=== PATIENT | male | born 1975 | race Caucasian/White ===

== ENCOUNTER 2022-11-27 07:36 | Emergency (ER) | payer MEDICAID ==
[~2022-11-27] VITALS: Ht 170.2 cm; Wt 82.0 kg
[2022-11-27] MEDS ORDERED: OLANZAPINE 5MG TABLET ODT PO ONE ×2 (07:45→11:30)
[2022-11-27] MEDS ORDERED: MIDAZOLAM HCL 2 MG/2 ML VIAL IM ONE (07:45)
[2022-11-27 08:46] LABS: BASOPHILS % 0.5 % (0.0-2.0); EOSINOPHILS % 1.8 % (0.0-5.0); HEMATOCRIT. 42.1 % (42.0-52.0); HEMOGLOBIN. 14.5 g/dL (14.0-18.0); LYMPHOCYTES % 21.7 % (20.0-50.0); MEAN CORPUSCULAR HEMOGLOBIN 28.8 pg (28.0-32.0); MEAN CORPUSCULAR VOLUME 83.8 fL (80.0-94.0); MEAN PLATELET VOLUME 7.3 fl (7.4-10.4); MONOCYTES % 6.1 % (2.0-8.0); NEUTROPHILS % 69.9 % (40.0-76.0); PLATELET 330 x1000/uL (130-400); RED BLOOD CELL COUNT 5.03 mill/uL (4.7-6.1); RED CELL DISTRIBUTION WIDTH 13.9 % (11.6-14.6)
[2022-11-27 08:52] LABS: CHLORIDE 106 mEq/L (98-107)
[2022-11-27 09:01] LABS: ETHANOL BLOOD < 10 mg/dL
[2022-11-27 10:39] LABS: CLARITY URINE CLEAR (CLEAR); COLOR URINE YELLOW (YELLOW); KETONES URINE NEGATIVE (NEGATIVE); LEUKOCYTE ESTERASE URINE NEGATIVE (NEGATIVE); NITRITE URINE NEGATIVE (NEGATIVE); OCCULT BLOOD URINE NEGATIVE (NEGATIVE); PH URINE >=9.0 (4.5-8.0); PROTEIN URINE TRACE (NEGATIVE); SPECIFIC GRAVITY URINE 1.022 (1.005-1.030); UROBILINOGEN URINE 0.2 E.U./dL (0.2-1.0)
[2022-11-27] MEDS ORDERED: LORAZEPAM 1MG TABLET PO ONE (11:30)
[2022-11-27 11:44] LABS: *AMPHETAMINES SCREEN URINE NEGATIVE (NEGATIVE); *BARBITURATES SCREEN URINE NEGATIVE (NEGATIVE); *BENZODIAZEPINES SCREEN URINE NEGATIVE (NEGATIVE); *COCAINE SCREEN URINE NEGATIVE (NEGATIVE); CANNABINOID URINE SCREEN PRESUMTIVE POSITIVE (NEGATIVE); METHADONE URINE SCREEN NEGATIVE (NEGATIVE); OPIATES URINE SCREEN NEGATIVE (NEGATIVE); PHENCYCLIDINE URINE SCREEN NEGATIVE (NEGATIVE)
[2022-11-27] MEDS ORDERED: DIPHENHYDRAMINE 50MG/ML VIAL IM ONE (12:00)
[2022-11-28] MEDS ORDERED: LORAZEPAM 2MG/ML CPJ IM PRN (11:45)
[2022-11-29] MEDS ORDERED: ZIPRASIDONE HCL 20MG CAPSULE PO NR (10:30)
[2022-11-29] MEDS ORDERED: LORAZEPAM 1MG TABLET PO NR (10:30)
[2022-11-29] MEDS: OLANZAPINE 5MG TABLET ODT PO SCH ×2 (14:06→17:43)
[2022-11-29] MEDS ORDERED: LORAZEPAM 1MG TABLET PO ONE (20:30)
[2022-11-30] MEDS: OLANZAPINE 5MG TABLET ODT PO SCH (09:48)
[2022-12-01 14:40] VITALS: BP 130/78
== END 2022-12-01 14:57 | disposition short-term general hospital (02) ==
LOC: ER 07:36
DX: R45.851 Suicidal ideations (principal); F15.121 Other stimulant abuse with intoxication delirium; R45.1 Restlessness and agitation; I10 Essential (primary) hypertension; Z59.00 Homelessness unspecified
CPT/HCPCS: 36415; 70450; 80053; 80305; 80307; 80320; 80329; 81003; 85025; 96372; 99291; J1200; J2250; Z7610; G0480